=== PATIENT | male | born 1990 | race Caucasian/White ===

== ENCOUNTER 2016-09-29 14:09 | Emergency (ER) | payer OTHER ==
[2016-09-29] MEDS ORDERED: AZITHROMYCIN 500 MG TAB PO STA (15:02)
[2016-09-29] MEDS ORDERED: cefTRIAXone 250 MG VIAL IM STA (15:02)
[2016-09-29] MEDS ORDERED: metroNIDAZOLE 500 MG TAB PO STA (15:02)
[2016-09-29 15:07] LABS: Appearance,Urine Clear (Clear); Bilirubin,Urine Negative (Negative); Glucose,Urine (UA) Negative (Negative); Ketones,Urine Negative (Negative); Leukocyte Esterase,Urine Negative (Negative); Nitrite,Urine Negative (Negative); Protein,Urine Negative (Negative); Specific Gravity,Urine 1.014 (1.001-1.035); UA Billing (MACRO vs. MICRO) CHEM; Urobilinogen,Urine <2.0 mg/dL (<2.0)
--- NOTE | 2016-09-29 15:19 | ED ---
General Adult HPI - General Chief complaint: Urogenital Stated complaint: Male Time Seen by Provider: 09/29/16 14:39 Source: patient, RN notes reviewed Mode of arrival: ambulatory Limitations: no limitations - History of Present Illness Initial comments: 26-year-old male presents to the emergency department with a chief complaint of dysuria. Patient states that his girlfriend was diagnosed with Trichomonas. Patient states he went to his doctor. Testing was negative. Patient states he continues to have dysuria since that he should be evaluated. Patient denies any fever chills with this. Patient denies any drainage or discharge. Patient denies any radiation pain states just hurts in the end he urinates. Patient states he was concerned due to his symptoms without that he should be evaluated. - Related Data Home Medications Medication Instructions Recorded Confirmed No Known Home Medications [No 11/05/15 09/29/16 Known Home Medications] Allergies Allergy/AdvReac Type Severity Reaction Status Date / Time amoxicillin Allergy Rash/Hives Verified 09/29/16 14:50 haloperidol [From Haldol] Allergy Unknown Verified 09/29/16 14:50 haloperidol lactate Allergy Unknown Verified 09/29/16 14:50 [From Haldol] Penicillins Allergy Unknown Verified 09/29/16 14:50 ziprasidone HCl [From Geodon] Allergy Unknown Verified 09/29/16 14:50 ziprasidone mesylate Allergy Unknown Verified 09/29/16 14:50 [From Geodon] Review of Systems ROS Statement: Those systems with pertinent positive or pertinent negative responses have been documented in the HPI. ROS Other: All systems not noted in ROS Statement are negative. Past Medical History Past Medical History: No Reported History History of Any Multi-Drug Resistant Organisms: None Reported Past Surgical History: Orthopedic Surgery Additional Past Surgical History / Comment(s): Right ACL repair. Past Psychological History: Anxiety, Depression Smoking Status: Current every day smoker Past Alcohol Use History: None Reported Past Drug Use History: Prescription Drug Abuse - Past Family History Father Additional Family Medical History / Comment(s): Father is alive at age 60 with history of coronary artery disease. Mother Additional Family Medical History / Comment(s): Mother is alive at age 60 with no major medical problems. Patient is unhappy brothers, sisters, children. General Exam Limitations: no limitations General appearance: alert, in no apparent distress ENT exam: Present: normal exam, mucous membranes moist Neck exam: Present: normal inspection. Absent: tenderness, meningismus, lymphadenopathy Respiratory exam: Present: normal lung sounds bilaterally. Absent: respiratory distress, wheezes, rales, rhonchi, stridor Cardiovascular Exam: Present: regular rate, normal rhythm, normal heart sounds. Absent: systolic murmur, diastolic murmur, rubs, gallop, clicks GI/Abdominal exam: Present: soft, normal bowel sounds. Absent: distended, tenderness, guarding, rebound, rigid exam: Present: normal inspection, vertical testicular lie, circumcision. Absent: testicular tenderness, urethral discharge, scrotal swelling Neurological exam: Present: alert, oriented X3 Psychiatric exam: Present: normal affect, normal mood Skin exam: Present: warm, dry, intact, normal color. Absent: rash Course Vital Signs 09/29/16 14:13 Temperature 98.1 F Pulse Rate 74 Respiratory 20 Rate Blood Pressure 131/80 O2 Sat by Pulse 98 Oximetry Medical Decision Making - Medical Decision Making 26-year-old male presents emergency department with a chief complaint of dysuria. This time we will prophylactically treat for STDs. We are pending cultures. He does have follow-up with urologist was discussed that he should keep. We did discuss results questions. He stated he understood the plan. He will be discharged. - Lab Data Lab Results 09/29/16 Range/Units 14:48 Urine Color Yellow Urine Appearance Clear (Clear) Urine pH 7.0 (5.0-8.0) Ur Specific [place] 1.014 (1.001-1.035) Urine Protein Negative (Negative) Urine Glucose (UA) Negative (Negative) Urine Ketones Negative (Negative) Urine Blood Negative (Negative) Urine Nitrite Negative (Negative) Urine Bilirubin Negative (Negative) Urine Urobilinogen <2.0 (<2.0) mg/dL Ur Leukocyte Esterase Negative (Negative) Disposition Clinical Impression: Dysuria Disposition: HOME SELF-CARE Condition: Stable Instructions: Dysuria (ED) Additional Instructions: Please use medication as discussed. Please follow up with family doctor if symptoms have not improved over the next two days. Please return to the emergency room if your symptoms increase or worsen or for any other concerns. Referrals: Dimas Dickey MD [Primary Care Provider] - 1-2 days Time of Disposition: 15:19
[2016-09-29 15:46] VITALS: BP 129/80; PULSE 57; RESP 18; TEMP 97
== END 2016-09-29 15:48 | disposition home or self-care (01) ==
LOC: EC 14:09
DX: R30.0 Dysuria (principal); F17.200 Nicotine dependence, unspecified, uncomplicated; Z88.0 Allergy status to penicillin; Z88.8 Allergy status to other drugs, medicaments and biological substances
CPT/HCPCS: 87591; 87491; 81003; 87086; 99283; 96372; J0696

== ENCOUNTER 2017-06-01 14:09 | Inpatient (IN) | payer MEDICAID, OTHER ==
--- NOTE | 2017-06-01 16:05 | ED ---
Nausea/Vomiting/Diarrhea HPI <Saleem Martin - Last Filed: 06/01/17 17:18> - General Source: patient, RN notes reviewed, old records reviewed Mode of arrival: wheelchair Limitations: no limitations <Desiree Kat - Last Filed: 06/01/17 17:43> - General Chief complaint: Nausea/Vomiting/Diarrhea Stated complaint: Mental Health Eval Time Seen by Provider: 06/01/17 15:21 - History of Present Illness Initial comments: This patient is a 26-year-old male presents emergency Department chief complaint of needing a mental health evaluation. Patient is petitioned by his girlfriend. Patient has been using heroin, has been making some suicidal gestures towards his girlfriend. He denies any homicidal ideations. Patient reports that he was brought to the hospital by his girlfriend and his brother. His girlfriend does work for [email or web address]. Patient reports that he last used heroin 3 months ago. He states that he's been getting kicked out of his house multiple times and relates that he's been having more stressors why he used yesterday evening.Patient denies any recent fever, chills, shortness of breath, chest pain , back pain, abdominal pain, nausea vomiting, numbness or tingling, dysuria or hematuria, constipation or diarrhea, headaches or visual changes, or any other current symptoms (Desiree Kat) - Related Data Home Medications Medication Instructions Recorded Confirmed Ibuprofen [Motrin Ib] 600 mg PO Q6H PRN 06/01/17 06/01/17 Allergies Allergy/AdvReac Type Severity Reaction Status Date / Time amoxicillin Allergy Rash/Hives Verified 06/01/17 15:40 haloperidol [From Haldol] Allergy Unknown Verified 06/01/17 15:40 haloperidol lactate Allergy Unknown Verified 06/01/17 15:40 [From Haldol] Penicillins Allergy Unknown Verified 06/01/17 15:40 ziprasidone HCl [From Geodon] Allergy Unknown Verified 06/01/17 15:40 ziprasidone mesylate Allergy Unknown Verified 06/01/17 15:40 [From Geodon] Review of Systems ROS Other: All systems not noted in ROS Statement are negative. <Saleem Martin - Last Filed: 06/01/17 17:18> ROS Other: All systems not noted in ROS Statement are negative. <Desiree Kat - Last Filed: 06/01/17 17:43> ROS Statement: Those systems with pertinent positive or pertinent negative responses have been documented in the HPI. Past Medical History Past Medical History: No Reported History History of Any Multi-Drug Resistant Organisms: None Reported Past Surgical History: Orthopedic Surgery Additional Past Surgical History / Comment(s): Right ACL repair. Past Psychological History: Anxiety, Depression Smoking Status: Current every day smoker Past Alcohol Use History: None Reported Past Drug Use History: Heroin, Prescription Drug Abuse - Past Family History Father Additional Family Medical History / Comment(s): Father is alive at age 60 with history of coronary artery disease. Mother Additional Family Medical History / Comment(s): Mother is alive at age 60 with no major medical problems. Patient is unhappy brothers, sisters, children. <Desiree Kat - Last Filed: 06/01/17 17:43> General Exam <Saleem Martin - Last Filed: 06/01/17 17:18> Limitations: no limitations General appearance: alert, in no apparent distress Head exam: Present: atraumatic, normocephalic, normal inspection. Absent: other (Pinpoint pupils noted. Patient is alert and oriented. Responding to questions appropriately.) Eye exam: Present: normal appearance, PERRL, EOMI. Absent: scleral icterus, conjunctival injection, periorbital swelling ENT exam: Present: normal exam, normal oropharynx, mucous membranes moist, TM's normal bilaterally Neck exam: Present: normal inspection. Absent: tenderness, meningismus, lymphadenopathy Respiratory exam: Present: normal lung sounds bilaterally. Absent: respiratory distress, wheezes, rales, rhonchi, stridor Cardiovascular Exam: Present: regular rate, normal rhythm, normal heart sounds. Absent: systolic murmur, diastolic murmur, rubs, gallop, clicks GI/Abdominal exam: Present: soft, normal bowel sounds. Absent: distended, tenderness, guarding, rebound, rigid Extremities exam: Present: normal inspection, full ROM, normal capillary refill. Absent: tenderness, pedal edema, joint swelling, calf tenderness Back exam: Present: normal inspection Neurological exam: Present: alert, oriented X3, CN II-XII intact Psychiatric exam: Present: normal affect, normal mood, other ( reports he' s had a history of suicidal ideations. Denies any specific plan at this time.) Skin exam: Present: warm, dry, intact, normal color. Absent: rash <Desiree Kat - Last Filed: 06/01/17 17:43> - General Exam Comments Initial Comments: This is a 26-year-old male. No distress. (Desiree Kat) Course <Saleem Martin - Last Filed: 06/01/17 17:18> <Desiree Kat - Last Filed: 06/01/17 17:43> Vital Signs 06/01/17 14:28 Temperature 97.5 F L Pulse Rate 103 H Respiratory 14 Rate Blood Pressure 118/79 O2 Sat by Pulse 100 Oximetry - Reevaluation(s) Reevaluation #1: 06/01/17 17:18 Patient reevaluated by myself, Dr. Martin. Patient is very emotional at this time. Patient was seen by mental health services who did recommend admission. Patient had report of to suicidal threats and different occasions by different people. Patient does not recall this. Patient does admit to having a problem with heroin use for the past 7 years. Positive clinical certificate completed. (Saleem Martin) Medical Decision Making <Saleem Martin - Last Filed: 06/01/17 17:18> <Desiree Kat - Last Filed: 06/01/17 17:43> - Medical Decision Making Patient is a 26-year-old male presents today chief complaint of air within the abuse and some suicidal ideations. Patient is been petitioned by his girlfriend because he has been having erratic behavior to his drug abuse. Patient reports she's been on a binge this evening. He does arrive to the emergency department somewhat high. He does answer all questions appropriately. Patient was a baby EPS with Dilaudid patient will benefit from admission. She was petitioned by family members and certification. By Dr. Martin. (Desiree Kat) Disposition <Saleem Martin - Last Filed: 06/01/17 17:18> Time of Disposition: 17:43 <Desiree Kat - Last Filed: 06/01/17 17:43> Clinical Impression: Suicidal behavior, Drug abuse Disposition: TRANSFER TO PSYCH HOSP/UNIT Condition: Stable Referrals: None,Stated [Primary Care Provider] - 1-2 days
[2017-06-01] MEDS ORDERED: LORazepam 1 MG TAB PO STA ×2 (17:20→18:04)
[2017-06-01] MEDS ORDERED: ARIPiprazole 15 MG TAB PO STA (17:20)
[2017-06-01] MEDS ORDERED: LORazepam 1 MG TAB PO PRN (19:31)
[2017-06-01] MEDS ORDERED: MAGNESIUM HYDROXIDE 2,400 MG/10 ML CUP PO PRN ×2 (19:31→19:33)
[2017-06-01] MEDS ORDERED: MAG HYDROX/AL HYDROX/SIMETH 30 ML CUP PO PRN (19:31)
[2017-06-01] MEDS ORDERED: ACETAMINOPHEN TAB 325 MG TAB PO PRN ×2 (19:31→19:33)
[2017-06-01] MEDS ORDERED: flUPHENAZine 2.5 MG/ML (MDV) 10 ML VIAL IM PRN (19:35)
[2017-06-01] MEDS ORDERED: LORazepam 2 MG/ML INJ IM PRN (19:35)
[2017-06-01] MEDS ORDERED: diphenhydrAMINE 50 MG/ML 1 ML VIAL IM PRN ×2 (19:37→19:39)
[2017-06-01] MEDS ORDERED: ZIPRASIDONE 20 MG VIAL IM PRN (19:40)
[2017-06-01] MEDS ORDERED: NICOTINE 14MG/24HR PATCH TRANSDERM SCH (19:45)
[2017-06-01] MEDS ORDERED: cloNIDine HCL 0.1 MG TAB PO PRN (19:47)
[2017-06-01] MEDS ORDERED: ONDANSETRON 4 MG TAB PO PRN (19:48)
[2017-06-01] MEDS ORDERED: DIPHENOX-ATROP 2.5-0.025 MG 1 EACH TAB PO PRN (19:48)
--- NOTE | 2017-06-01 22:16 | P.MDCNMH ---
History of Present Illness H&P Date: 06/01/17 Chief Complaint: medical management 26-year-old male with past medical history of temper issues, he was petitioned here by his girlfriend and friend due to erratic behaviors and heroin addiction he was being evicted from his place and he relapsed on using heroin for which he is seeking help Patient otherwise denies any medical concerns or complaints at this point. He denies any chest pain or trouble breathing denies any fevers or chills denies any headache dizziness or lightheadedness denies any changes in his bowel or urinary habits denies any abdominal pain denies any focal neurologic deficits. He reported that he voluntarily with seeking help due to heroin addiction and temper management issues as he feels angry at times and wants to hurt people around him without specifying any person. Review of Systems Pertinent positives as noted in HPI. All other systems were reviewed and are negative Past Medical History Past Medical History: No Reported History History of Any Multi-Drug Resistant Organisms: None Reported Past Surgical History: Orthopedic Surgery Additional Past Surgical History / Comment(s): Right ACL repair. Past Psychological History: Anxiety, Depression Smoking Status: Current every day smoker Past Alcohol Use History: None Reported Past Drug Use History: Heroin, Prescription Drug Abuse - Past Family History Father Additional Family Medical History / Comment(s): Father is alive at age 60 with history of coronary artery disease. Mother Additional Family Medical History / Comment(s): Mother is alive at age 60 with no major medical problems. Patient is unhappy brothers, sisters, children. Medications and Allergies Home Medications Medication Instructions Recorded Confirmed Type Ibuprofen [Motrin Ib] 600 mg PO Q6H PRN 06/01/17 06/01/17 History Allergies Allergy/AdvReac Type Severity Reaction Status Date / Time amoxicillin Allergy Rash/Hives Verified 06/01/17 15:40 haloperidol [From Haldol] Allergy Unknown Verified 06/01/17 15:40 haloperidol lactate Allergy Unknown Verified 06/01/17 15:40 [From Haldol] Penicillins Allergy Unknown Verified 06/01/17 15:40 ziprasidone HCl [From Geodon] Allergy Unknown Verified 06/01/17 15:40 ziprasidone mesylate Allergy Unknown Verified 06/01/17 15:40 [From Geodon] Physical Exam Vitals: Vital Signs Temp Pulse Pulse Resp BP BP Pulse Ox 06/01/17 18:35 98.3 F 98 18 122/77 06/01/17 18:15 98.1 F 99 18 128/87 98 06/01/17 14:28 97.5 F L 103 H 14 118/79 100 Intake and Output 06/01/17 06/01/17 06/01/17 06:59 14:59 22:59 Other: Weight 81.647 kg 81.193 kg Patient Weight 06/02/17 06:59 Weight 81.193 kg Constitutional: No acute distress, seems to be sleepy and irritable Eyes: Anicteric sclerae, moist conjunctiva, no lid-lag Pupils equal round reactive to light ENMT: NC/AT Oropharynx clear, no erythema, exudates Neck: Supple, FROM, no masses, or JVD No carotid bruits No thyromegaly Lungs: Clear to auscultation Clear to percussion Normal respiratory effort, no accessory muscle use Cardiovascular: Heart regular in rate and rhythm, No murmurs, gallops, or rubs No peripheral edema Abdominal: Soft Nontender, no guarding, rebound or rigidity Abdomen moving with respiration Normoactive bowel sounds No hepatomegaly, No splenomegaly No palpable mass No abdominal wall hernia noted Skin: Normal temperature, tone, texture, turgor No induration No subcutaneous nodules No rash, lesions No ulcers Extremities: No digital cyanosis No clubbing Pedal pulses intact and symmetrical Radial pulses intact and symmetrical No calf tenderness Psychiatric: Patient is sleepy but easily arousable , oriented to person, place and time Avoids eye contact Poor judgment Neuro Muscles Strength 5/5 in all 4 extremities Sensation to light touch grossly present throughout No focal sensory deficits Lymphatics: no palpable cervical or supraclavicular , or inguinal lymph nodes Cranial Nerve Examination - Cranial Nerves Cranial Nerve II- Optic: Intact Cranial Nerve III- Oculomotor: Intact Cranial Nerve IV- Trochlear: Intact Cranial Nerve V- Trigeminal: Intact Cranial Nerve - Abducens: Intact Cranial Nerve VII- Facial: Intact Cranial Nerve VIII- Auditory: Intact Cranial Nerve IX- Glossopharyngeal: Intact Cranial Nerve X- Vagus: Intact Cranial Nerve XI- Accessory: Intact Cranial Nerve XII- Hypoglossal: Intact Assessment and Plan (1) Smoking Narrative/Plan: Counseled to quit smoking NRT offered Current Visit: Yes Status: Acute Code(s): F17.200 - NICOTINE DEPENDENCE, UNSPECIFIED, UNCOMPLICATED SNOMED Code(s): 28977114 (2) Drug abuse Current Visit: Yes Status: Acute Code(s): F19.10 - OTHER PSYCHOACTIVE SUBSTANCE ABUSE, UNCOMPLICATED SNOMED Code(s): 51640277 (3) Major depression Narrative/Plan: Management per psych Current Visit: No Status: Acute Code(s): F32.9 - MAJOR DEPRESSIVE DISORDER, SINGLE EPISODE, UNSPECIFIED SNOMED Code(s): 414631210 (4) DVT prophylaxis Narrative/Plan: Low risk and ambulatory Current Visit: Yes Status: Acute Code(s): HIJ4258 - SNOMED Code(s): 262157700 Plan: Thank you for allowing us to participate in the care of this patient. We will follow peripherally. Do not hesitate to contact us with questions. Someone can be reached from the [facility] hospitalist group at all hours of the day at [phone].
[2017-06-02 06:46] VITALS: RESP 16
[2017-06-02] MEDS ORDERED: ARIPiprazole 15 MG TAB PO SCH (09:00)
[2017-06-02] MEDS: NICOTINE 14MG/24HR PATCH TRANSDERM SCH (09:11)
--- NOTE | 2017-06-02 10:53 | P.HP ---
Psychiatric H&P - . H&P Date: 06/02/17 History & Physical: Allergies Allergy/AdvReac Type Severity Reaction Status Date / Time amoxicillin Allergy Rash/Hives Verified 06/01/17 15:40 haloperidol [From Haldol] Allergy Unknown Verified 06/01/17 15:40 haloperidol lactate Allergy Unknown Verified 06/01/17 15:40 [From Haldol] Penicillins Allergy Unknown Verified 06/01/17 15:40 ziprasidone HCl [From Geodon] Allergy Unknown Verified 06/01/17 15:40 ziprasidone mesylate Allergy Unknown Verified 06/01/17 15:40 [From Geodon] Vital Signs Temp 98.6 F 06/02/17 06:46 Pulse 94 06/02/17 06:46 Resp 16 06/02/17 06:46 BP 128/59 06/02/17 06:46 Pulse Ox 98 06/01/17 18:15 Intake & Output 06/01/17 06/02/17 06/02/17 18:59 06:59 18:59 Weight 81.193 kg 06/02/17 10:39 Identification: Patient is a 26-year-old male who was petitioned by his girlfriend and brought by her friends to the emergency room. History of Present Illness: Patient states he had relapsed the day prior to admission and had started using heroin IV again because he felt bored. He states that he had been off the heroin for 2-3 months and had been using Kradum a pill he purchased at smoke shops to stop his cravings. His girlfriend didn't like that he was using this and told him that it was the same as using heroin. He states that she is verbally abusive at times calling him names and says hurtful things such as "you won't see your baby or you won't be in the baby's life". Patient states that he in the past has said things such as "I don't want to live anymore". Patient states that he did not make the statements on the day of admission. He states that he made the statements in the past but it has not been recently. Patient has lived with his girlfriend for 2 years and she is 12-14 weeks with their first child. Patient states that he was attending NA/AA meetings and was going to counseling at [facility] and was last seen there on Sunday. States that he is also to go to court on Sunday regarding his probation for an operating under the influence charge one year ago he was using Xanax at the time. Patient states that he and his girlfriend have frequent arguments regarding his relapses, and he views some of her statements as very hurtful and abusive. Patient states when he was admitted here in 2017 he had placed a belt around his neck, didn't want to but did this to get a reaction which was to get his girlfriend to stop screaming at him. Patient states that he has never made a suicide attempt in the past and has not had suicidal thoughts with plans in the past and states that he doesn't want to . He states that when he is using in coming off of heroin he feels like "shit" and this is when he feels depressed. Patient states when he is sober his mood is stable. Patient does not endorse any auditory hallucinations, visual hallucinations or delusions or paranoid ideation. Patient does not endorse any manic symptoms. Past Psychiatric History: Patient was admitted here in 2017 states that he has been in [place] on 2 occasions in the past, [place] on 3 occasions in the past and was in a sobriety house in [place]. He states he was last at [facility] 3-4 months ago. Patient states that he was seen by a psychiatrist when he is in the sixth grade and was placed on Adderall on and off for a year. States his primary care physician has prescribed Depakote and Xanax for anxiety. Patient could not recall any other medications that he has been on in the past. Past Medical/Surgical History: Patient denies any medical problems and states that when he was 16 he had knee surgery. Family History: Patient denies any family history of psychiatric disorders, substance or alcohol use disorders and no completed suicides. Social History: Patient was born and raised in [place], his parents are alive and and he has 2 half sisters from his father's previous marriage. He completed high school and then went on to work and last worked 3 months ago at [employer] worked for 2 years but when he lost his drivers license he was unable to continue to work. Patient states he's never been and he and his girlfriend have been together for 3 years and lived together for 2. She is currently 12-14 weeks with her first child. Patient receives financial support by selling bonds that were given to him by his grandparents. He states that he feels his girlfriend is verbally abusive but denies any other abuse Substance Use History: Patient states he began using marijuana at the age of 15 on a daily basis and has not currently used. He states he began using opioids after his knee surgery at the age of 16 again buying them off the [address] and then changed to IV heroin. He states that he has used Xanax purchased off the street and last used 3 months ago and had been using it for the prior 2 years. He denies any amphetamine, cocaine, methamphetamine or other drug use history. Patient does use tobacco products. 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 He also been charged with possession of marijuana. Mental status: Appearance/Attitude: Patient is dressed in a hospital gown, makes good eye contact and is cooperative. Behavior: Patient does not exhibit any psychomotor agitation or retardation., Patient appears tired Speech/Language: Patient's speech is spontaneous of normal volume and rhythm and he is coherent. Thought Process: Patient is goal-directed there is no evidence of circumstantial or tangential thought and no loose associations or flight of ideas. Thought Content: Patient denies any auditory or visual hallucinations and no delusions or paranoid ideation were elicited. Patient denies feeling hopeless or helpless and states that he returned to using IV heroin because he was feeling bored. Patient states that he has been sleeping and eating well. Suicidal/Homicidal Ideation: Patient denies any current suicidal or homicidal ideation. Sensorium/Cognition: He is alert and oriented to person, place, and time and his recent and remote memory were grossly intact. Mood/Affect: Patient's mood is euthymic and his affect is appropriate Insight/Judgment: Patient's insight and judgment are fair, he is aware he needs to stop using heroin. Intellectual Functioning: His intellectual functioning appears average Strength/Weakness: Patient has stable housing, has been attending counseling and NA meetings/relapse use of heroin lack of financial support Assessment: Patient was brought to the emergency room by his girlfriend and friends and his girlfriend petitioned him stating that he had said "I don't want to live anymore" and "I'm going to kill myself" patient states that he did not make those statements recently but has made them in the past. He states that he and his girlfriend had been arguing recently due to his using a natural substance he purchases at sm[employer] shops to stop the craving and states that he relapsed a day prior to admission using IV heroin again. He states that he and his girlfriend have a conflicted relationship because of this and that she is verbally abusive the time saying hurtful things such as you won't see her baby or he won't be in the baby's life. He and the patient been together for 2 years and she is 12-14 weeks with her first child. Patient states he returned to using heroin because he was bored. Patient denies feeling depressed , suicidal and no psychotic symptoms were elicited. Patient has been attending counseling sessions at [facility]. Admission Diagnosis: Opioid use disorder, moderate severity Plan: Patient was admitted on a voluntary basis, routine laboratory studies were reordered as the patient had declined to have them this morning. Patient also had a medical consultation. He was also ordered group and activity therapy will placed on routine precautions. Patient was not started on any psychotropic medication secondary to his not reporting any depressive or psychotic symptomatology. Patient and I discussed his staying in the hospital to evaluate his girlfriend's report of suicidal thoughts. Patient states that he is not feeling suicidal. Patient declines any inpatient rehab and states he wishes to continue with outpatient [facility]. Patient was encouraged to go ahead with the blood work as he is concerned that he may have hepatitis. 06/02/17 10:40 06/02/17 10:45
[2017-06-02] MEDS: LORazepam 1 MG TAB PO PRN (18:00)
[2017-06-02] MEDS: MAG HYDROX/AL HYDROX/SIMETH 30 ML CUP PO PRN (18:02)
[2017-06-03] MEDS: LORazepam 1 MG TAB PO PRN ×2 (08:32→18:28)
[2017-06-03] MEDS: NICOTINE 14MG/24HR PATCH TRANSDERM SCH (08:32)
[2017-06-03 09:18] LABS: ALT 123 U/L (21-72); AST 56 U/L (17-59); Albumin 4.8 g/dL (3.5-5.0); Alkaline Phosphatase 82 U/L (38-126); Anion Gap 12 mmol/L; Blood Urea Nitrogen 19 mg/dL (9-20); Carbon Dioxide 30 mmol/L (22-30); Chloride 99 mmol/L (98-107); Glucose 109 mg/dL (74-99); Potassium 4.1 mmol/L (3.5-5.1); Sodium 141 mmol/L (137-145); Total Protein 7.9 g/dL (6.3-8.2)
[2017-06-03 09:31] LABS: Basophils # (A) 0.1 k/uL (0-0.2); Basophils % (A) 1 %; Eosinophils # (A) 0.2 k/uL (0-0.7); Eosinophils % (A) 2 %; Lymphocytes # (A) 2.1 k/uL (1.0-4.8); Lymphocytes % (A) 28 %; MCH 28.8 pg (25.0-35.0); MCHC 34.1 g/dL (31.0-37.0); MCV 84.7 fL (80.0-100.0); Mean Platelet Volume 7.6; Monocytes # (A) 0.7 k/uL (0-1.0); Monocytes % (A) 9 %; Neutrophils # (A) 4.3 k/uL (1.3-7.7); Neutrophils % (A) 58 %; Platelet Count 228 k/uL (150-450); RBC 5.55 m/uL (4.30-5.90); RDW 12.5 % (11.5-15.5); WBC 7.5 k/uL (3.8-10.6)
--- NOTE | 2017-06-03 11:55 | P.PN ---
Progress Note - Text Progress Note Date: 06/03/17 Interval History: Patient is a 26-year-old male who is being seen in [facility] for the weekend. Patient reports that he is sleeping well, his appetite is good and he is not having any suicidal thoughts and does not feel depressed. Patient states that he had permitted them to draw his blood this morning. Patient states that he is not willing to go to inpatient rehab but knows that he needs to follow up with and his sponsor. Patient denies any symptoms of depression at this time Mental Status: Appearance/Attitude: Patient is in a hospital gown, makes good eye contact and is cooperative Behavior: Patient does not display any psychomotor agitation or retardation. Speech/Language: Patient's speech is spontaneous and of normal volume and rhythm and he is coherent Thought Process: Patient is goal-directed there is no evidence of loose associations or flight of ideas. Thought Content: Patient denies any auditory or visual hallucinations and no delusions or paranoid ideation were elicited. Patient states that he is sleeping and eating well and states that he is not having any symptoms of withdrawal. Patient reports that he is not feeling worthless or hopeless. Suicidal/Homicidal Ideation: Patient denies any current suicidal or homicidal ideation. Sensorium/Cognition: Patient is alert and oriented to person, place, and time and his recent and remote memory were grossly intact. Mood/Affect: Patient's mood is euthymic and his affect is appropriate Insight/Judgment: Patient's insight and judgment are fair. Assessment: Patient reports that he is not feeling suicidal and denies feeling depressed. Patient declines inpatient rehab stating that he only relapsed once and no [facility] needs to work the program. Patient states he is willing to return home and attend NA meetings and a sponsor as well as follow-up outpatient counseling. Patient reports no withdrawal symptoms. Patient is sleeping and eating well. Patient TSH was low and his ALT was elevated, will speak with medical billing manager regarding further workup of his ALT if needed and will order a free T4. Plan: Patient will continue in the hospital to further assess his mood, we will order a free T4 and speak with the medical billing manager regarding any needed workup for his elevated ALT. Patient was encouraged and discharge to follow-up with NA meetings and would anticipate his discharge being in the next day or so.
[2017-06-03] MEDS: MAG HYDROX/AL HYDROX/SIMETH 30 ML CUP PO PRN (18:29)
[2017-06-04] MEDS: LORazepam 1 MG TAB PO PRN ×2 (03:42→11:08)
[2017-06-04 06:57] VITALS: BP 109/62; PULSE 60; TEMP 97.8
[2017-06-04] MEDS: NICOTINE 14MG/24HR PATCH TRANSDERM SCH (08:41)
--- NOTE | 2017-06-04 08:48 | P.PN ---
Progress Note - Text Progress Note Date: 06/04/17 Patient was seen for routine follow-up examination. He was admitted on Sunday the second with complaints of having suicidal thoughts. But he says he was not suicidal and had to say that only to get into the hospital because his girlfriend was concerned about him. Patient has an extensive history of abusing IV heroin. He was abusing pot when he was a teenager. He denies abusing other drugs or alcohol. He reports that he gets depressed sometimes lasting for a couple of days to maybe a week and also gets somewhat manic lasting for a short time often without any reason. He is currently on probation for driving while impaired apparently from abusing heroin. Patient asked if he could be placed on any medication and still be discharged today. He was advised that he needs to be here at least for a couple of days and cannot be discharged on the same day he is started on medication. Then he said he would rather go home and work on medications once he goes to [facility]. This is a white inventory male with good hygiene he is polite friendly cheerful and cooperative. He does not show any psychomotor agitation or retardation. His speech is spontaneous relevant and goal-directed. His affect is appropriate to thought content. He denies hallucinations delusional thinking suicidal and homicidal ideas. He is well oriented. Good memory concentration general fund of knowledge etc. His insight is fair and judgment seems to be impaired as evidenced by continued heroin abuse. Assessment: Probable Unspecified bipolar disorder F 31.9 Opioid use disorder severe F 11.20 Cannabis use disorder severe in remission F 12.20 Dystonic reaction from Haldol and Geodon. ALLERGY to amoxicillin and penicillins. Plan: Discussed with the treatment team about his treatment plan including discharge plan since he is requesting to be discharged and is on voluntary status and does not meet the commitment criteria.
[2017-06-04] MEDS: MAG HYDROX/AL HYDROX/SIMETH 30 ML CUP PO PRN (09:44)
--- NOTE | 2017-06-04 11:35 | P.DS ---
Providers Date of admission: 06/01/17 17:48 Expected date of discharge: 06/04/17 Attending physician: Pratik Grijalva Consults: 06/01/17 19:31 Consult Physician Routine Consulting Provider: [facility] Consult Reason/Comments: follow up H & P Do you want consulting provider notified?: Yes Primary care physician: Stated None Hospital Course: Patient had his psychiatric examination physical examination and psychosocial evaluation. After psychiatric examination he was placed only on when necessary medications. He adjusted well to the milieu, was socializing with peers and was getting along with staff members. He did not show any suicidal homicidal or confused behavior. He talked with his girlfriend and he is eager to leave the hospital and go to his outpatient follow-up. He wants a letter from this hospital stating that he was on Ativan on when necessary basis to let the aboriginal liaison officer no reasons if the drug screening turns out to be positive for benzodiazepines. This was discussed by the treatment team and it was agreed to discharge him. Currently he is polite and friendly cheerful and cooperative. He does not show any psychomotor agitation or retardation. His speech is spontaneous relevant and goal-directed. His mood is euthymic and affect is appropriate to thought content. He continues to deny suicidal and homicidal ideas. He denies hallucinations and delusional thinking he is well oriented with good memory concentration and fund of knowledge etc. Diagnosis on discharge: Probable unspecified bipolar and related disorder F 31.9 Opioid use disorder severe F 11.20 Cannabis use disorder severe in remission F 12.20 Dystonic reaction from Haldol and Geodon ALLERGY to amoxicillin and penicillins. Discharge plan: Patient is discharged to have treatment at [facility]. He was again counseled about the importance of staying clean and abiding by the law. He will talk to his therapist or come to ER if he feels depressed or suicidal He was advised to seek mood stabilizer for possible mood stabilization. He agreed with these recommendations. Patient Condition at Discharge: Good Plan - Discharge Summary Discharge Rx Participant: No New Discharge Prescriptions: Discontinued Ibuprofen [Motrin Ib] 600 mg PO Q6H PRN PRN Reason: Pain Follow up Appointment(s)/Referral(s): [facility] [Outside] - 06/11/17 11:00 am (06/11/17 at 11:00am with Micheal) None,Stated [Primary Care Provider] - 1-2 days
== END 2017-06-04 12:58 | disposition home or self-care (01) | DRG 885 ==
LOC: EC 14:09 → 3MHU 17:48
PROVIDERS: ADMIT Psychiatry & Neurology Psychiatry; ATTEND Psychiatry & Neurology Psychiatry
DX: F31.9 Bipolar disorder, unspecified (principal); R45.851 Suicidal ideations; G24.09 Other drug induced dystonia; F12.21 Cannabis dependence, in remission; F17.200 Nicotine dependence, unspecified, uncomplicated; F11.90 Opioid use, unspecified, uncomplicated; F41.9 Anxiety disorder, unspecified; R19.7 Diarrhea, unspecified; R11.2 Nausea with vomiting, unspecified; T43.4X5A Adverse effect of butyrophenone and thiothixene neuroleptics, initial encounter; T43.595A Adverse effect of other antipsychotics and neuroleptics, initial encounter; Z65.3 Problems related to other legal circumstances; Z88.0 Allergy status to penicillin; Z82.49 Family history of ischemic heart disease and other diseases of the circulatory system; Y92.009 Unspecified place in unspecified non-institutional (private) residence as the place of occurrence of the external cause
CPT/HCPCS: 80053; 82075; 84439; 84443; 85025; 99285

== ENCOUNTER → 2017-12-14 | Outpatient (CLI) | payer OTHER ==
--- NOTE | 2017-12-14 12:38 | US ---
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 Viral hep C, history of appendectomy EXAM MEASUREMENTS: Liver Length: 16.8 cm Gallbladder Wall: 0.3 cm CBD: 0.4 cm Right Kidney: 11.6 x 4.1 x 5.0 cm Pancreas: wnl, tail limited by overlying midline bowel gas Liver: wnl . No suspicious masses are evident. Gallbladder: wnl Evidence for sonographic Campbell's sign: no CBD: wnl Right Kidney: wnl IMPRESSION: 1. Liver is slightly enlarged at 16.8 cm, normal less than 15.5 cm. No suspicious masses evident. 2. Right upper quadrant ultrasound otherwise unremarkable.
== END | disposition home or self-care (01) ==
LOC: RADUSWWP 07:12
PROVIDERS: ATTEND Internal Medicine Gastroenterology
DX: R16.0 Hepatomegaly, not elsewhere classified (principal)
CPT/HCPCS: 76705

== ENCOUNTER → 2017-12-18 | Outpatient (CLI) | payer OTHER ==
[2017-12-18 13:44] LABS: HCT 46.1 % (39.0-53.0); HGB 15.6 gm/dL (13.0-17.5); MCH 28.6 pg (25.0-35.0); MCHC 33.7 g/dL (31.0-37.0); MCV 84.7 fL (80.0-100.0); Mean Platelet Volume 7.8; Platelet Count 217 k/uL (150-450); RBC 5.44 m/uL (4.30-5.90); RDW 12.8 % (11.5-15.5); WBC 14.5 k/uL (3.8-10.6)
[2017-12-18 13:54] LABS: Albumin 4.4 g/dL (3.5-5.0); Bilirubin, Delta 0.4 mg/dL (0.0-0.2); Bilirubin,Unconjugated 0.2 mg/dL (0.0-1.1); Total Bilirubin 0.6 mg/dL (0.2-1.3); Total Protein 7.6 g/dL (6.3-8.2)
[2017-12-18 14:07] LABS: Prothrombin Time 10.3 sec (9.0-12.0)
[2017-12-21 14:25] LABS: HCV Quant Log 5.44 (<1.08)
== END | disposition home or self-care (01) ==
LOC: LABWHC1 13:19
PROVIDERS: ATTEND Physician Assistant
DX: B19.20 Unspecified viral hepatitis C without hepatic coma (principal)
CPT/HCPCS: 36415; 80076; 85027; 85610; 87522

== ENCOUNTER → 2018-04-11 | Outpatient (CLI) | payer OTHER | LOC: LABWHC1 12:25 | PROVIDERS: ATTEND Physician Assistant | DX: B18.2 Chronic viral hepatitis C (principal) | CPT/HCPCS: 36415 ==

== ENCOUNTER → 2019-01-14 | Outpatient (CLI) | payer OTHER ==
[2019-01-14 11:50] LABS: Basophils % (A) 1 %; Eosinophils # (A) 0.1 k/uL (0-0.7); Eosinophils % (A) 2 %; HCT 46.7 % (39.0-53.0); HGB 15.8 gm/dL (13.0-17.5); Lymphocytes % (A) 38 %; MCH 28.5 pg (25.0-35.0); MCHC 33.8 g/dL (31.0-37.0); MCV 84.2 fL (80.0-100.0); Mean Platelet Volume 6.9; Monocytes # (A) 0.5 k/uL (0-1.0); Monocytes % (A) 9 %; Neutrophils # (A) 2.5 k/uL (1.3-7.7); Neutrophils % (A) 47 %; Platelet Count 231 k/uL (150-450); RBC 5.55 m/uL (4.30-5.90); RDW 12.3 % (11.5-15.5); WBC 5.4 k/uL (3.8-10.6)
[2019-01-14 15:54] LABS: Albumin 4.8 g/dL (3.80-4.90); Albumin/Globulin Ratio 2.09 (1.60-3.17); Bilirubin, Conjugated 0.3 mg/dL (0.20-0.40); Bilirubin,Unconjugated 0.5 mg/dL; Globulin 2.3 g/dL (1.6-3.3); Total Bilirubin 0.8 mg/dL (0.2-1.2); Total Protein 7.1 g/dL (6.2-8.2)
[2019-01-16 15:08] LABS: Hepatits C Virus RNA DETECTED (Not detected); LOG HCV IU/mL 5.61 (<1.08)
== END | disposition home or self-care (01) ==
LOC: LABWHC1 10:38
PROVIDERS: ATTEND Physician Assistant
DX: B18.2 Chronic viral hepatitis C (principal)
CPT/HCPCS: 36415; 80076; 85025; 87522

== ENCOUNTER → 2019-05-01 | Outpatient (CLI) | payer OTHER ==
[2019-05-01 16:52] LABS: African American GFR (CKD) 105.3 (60.0-200.0); Non-African American GFR(CKD) 90.9 (60.0-200.0)
== END | disposition home or self-care (01) ==
LOC: LABWHC1 11:11
PROVIDERS: ATTEND Physician Assistant
DX: B18.2 Chronic viral hepatitis C (principal)
CPT/HCPCS: 36415; 82565

== ENCOUNTER 2019-10-15 22:47 | Emergency (ER) | payer OTHER ==
[2019-10-15] MEDS ORDERED: NALOXONE 0.4 MG/ML 10 ML VIAL IVP PRN (22:50)
--- NOTE | 2019-10-15 22:53 | ED ---
Overdose HPI - General Stated Complaint: Overdose Source: RN notes reviewed, old records reviewed Limitations: language barrier, altered mental status, physical limitation - History of Present Illness Initial Comments: This is a 29-year-old male DF for evaluation of accidental overdose, XL heroin overdose unresponsive cyanotic on arrival to the hospital. Patient is bagged really oxygen color returned. Patient is presents by friend who dropped him off for the ER for overdose MD Complaint: accidental overdose (Heroin) -: unknown Intent: unwilling to say How Overdose Was Discovered: family/friend present at time Context: Intentional Overdose: drug/ETOH problems Context: Accidental Overdose: wanted to get high Treatments Prior to Arrival: none - Related Data Allergies Allergy/AdvReac Type Severity Reaction Status Date / Time amoxicillin Allergy Rash/Hives Verified 06/01/17 15:40 haloperidol [From Haldol] Allergy Unknown Verified 06/01/17 15:40 haloperidol lactate Allergy Unknown Verified 06/01/17 15:40 [From Haldol] Penicillins Allergy Unknown Verified 06/01/17 15:40 ziprasidone HCl [From Geodon] Allergy Unknown Verified 06/01/17 15:40 ziprasidone mesylate Allergy Unknown Verified 06/01/17 15:40 [From Geodon] Review of Systems ROS Statement: Those systems with pertinent positive or pertinent negative responses have been documented in the HPI. ROS Other: All systems not noted in ROS Statement are negative. Past Medical History Past Medical History: No Reported History History of Any Multi-Drug Resistant Organisms: None Reported Past Surgical History: Orthopedic Surgery Additional Past Surgical History / Comment(s): Right ACL repair. Past Psychological History: Anxiety, Depression Past Alcohol Use History: None Reported Past Drug Use History: Heroin, Prescription Drug Abuse - Past Family History Father Additional Family Medical History / Comment(s): Father is alive at age 60 with history of coronary artery disease. Mother Additional Family Medical History / Comment(s): Mother is alive at age 60 with no major medical problems. Patient is unhappy brothers, sisters, children. General Exam General appearance: alert, in no apparent distress Head exam: Present: atraumatic, normocephalic, normal inspection Eye exam: Present: normal appearance, PERRL, EOMI. Absent: scleral icterus, conjunctival injection, periorbital swelling ENT exam: Present: normal exam, mucous membranes moist Neck exam: Present: normal inspection. Absent: tenderness, meningismus, lymphadenopathy Respiratory exam: Present: normal lung sounds bilaterally. Absent: respiratory distress, wheezes, rales, rhonchi, stridor Cardiovascular Exam: Present: regular rate, normal rhythm, normal heart sounds. Absent: systolic murmur, diastolic murmur, rubs, gallop, clicks GI/Abdominal exam: Present: soft, normal bowel sounds. Absent: distended, tenderness, guarding, rebound, rigid Extremities exam: Present: normal inspection, full ROM, normal capillary refill. Absent: tenderness, pedal edema, joint swelling, calf tenderness Back exam: Present: normal inspection Neurological exam: Present: alert, oriented X3, CN II-XII intact Psychiatric exam: Present: normal affect, normal mood Skin exam: Present: warm, dry, intact, normal color. Absent: rash Course Vital Signs 10/15/19 10/15/19 10/16/19 22:47 22:50 00:29 Temperature 97.6 F 98.1 F Pulse Rate 105 H 87 Respiratory 10 L 10 L 16 Rate Blood Pressure 131/82 115/81 O2 Sat by Pulse 97 97 Oximetry - Reevaluation(s) Reevaluation #1: 10/15/19 22:52 Medical record is reviewed Reevaluation #2: 10/15/19 22:52 Patient response to Narcan, awake Medical Decision Making - Medical Decision Making 29 male DF for evaluation heroin overdose completely responsive, patient responded to Narcan, patient can be discharged home Critical Care Time Critical Care Time: Yes Total Critical Care Time: 31 Disposition Clinical Impression: Drug abuse, Heroin overdose Disposition: HOME SELF-CARE Condition: Fair Instructions (If sedation given, give patient instructions): Opioid Safety (ED), Opioid Use Disorder (ED) Is patient prescribed a controlled substance at d/c from ED?: No Referrals: None,Stated [Primary Care Provider] - 1-2 days
[2019-10-15] MEDS ORDERED: NALOXONE 0.4 MG/ML 1 ML VIAL IV PRN (22:59)
[2019-10-16 00:31] VITALS: BP 115/81; PULSE 87; RESP 16; TEMP 98.1
== END 2019-10-16 00:29 | disposition home or self-care (01) ==
LOC: EC 22:47
DX: T40.1X1A Poisoning by heroin, accidental (unintentional), initial encounter (principal); F11.10 Opioid abuse, uncomplicated; Z88.0 Allergy status to penicillin; Z88.8 Allergy status to other drugs, medicaments and biological substances
CPT/HCPCS: 96374; 99285; J2310